=== PATIENT | female | born 1995 | race Asian ===

== ENCOUNTER 2018-04-22 17:55 | Emergency (ER) | payer OTHER ==
[~2018-04-22] VITALS: Ht 165.1 cm; Wt 72.6 kg
[2018-04-22 19:00] VITALS: BP 135/60
[2018-04-22] MEDS ORDERED: AMOXICILLIN/K CLAV 875/125MG TABLET. PO ONE (19:45)
[2018-04-22] MEDS ORDERED: ACETAMINOPHEN 325 MG TABLET. PO ONE (19:45)
[2018-04-22] MEDS ORDERED: ACETAMINOPHEN 650 MG/20.3 ML SOLUTION. PEG ONE (19:45)
[2018-04-22] MEDS ORDERED: CYCL10TA2 PO (20:28)
[2018-04-22] MEDS ORDERED: AMOX1TAB61 PO (20:28)
[2018-04-22] MEDS ORDERED: NAPR-683 PO (20:28)
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
== END 2018-04-22 20:30 | disposition home or self-care (01) ==
LOC: ER 17:55 → EEVIPCON 17:55 → ER 20:30
DX: S53.402A Unspecified sprain of left elbow, initial encounter (principal); S01.85XA Open bite of other part of head, initial encounter; T74.11XA Adult physical abuse, confirmed, initial encounter; W50.3XXA Accidental bite by another person, initial encounter; W51.XXXA Accidental striking against or bumped into by another person, initial encounter; Y93.89 Activity, other specified; Y92.89 Other specified places as the place of occurrence of the external cause; Y99.8 Other external cause status
CPT/HCPCS: 73080; 81025; 99283

== ENCOUNTER 2019-09-22 16:16 | Emergency (ER) | payer SELFPAY ==
[~2019-09-22] VITALS: Ht 167.6 cm; Wt 80.0 kg
[~2019-09-22 16:16] MED LIST: AMOX1TAB61 PO; CYCL10TA2 PO; NAPR-683 PO
[2019-09-22 16:30] VITALS: BP 126/78
[2019-09-22] MEDS ORDERED: PENICILLIN G BENZATHINE LA 1,200,000 UNIT/2 ML DISP.SYRIN. IM ONE (16:45)
--- NOTE | 2019-09-22 16:54 | PHYS DOC ---
Past Medical History Past Medical History: Other Additional Past Medical Histor: Right breast abscess Past Surgical History: No Surgical History Smoking Status: Never Smoker Alcohol Use: None Drug Use: None General Adult EDM: Chief Complaint: SORE THROAT HPI: HPI: Patient is a 24-year-old otherwise healthy female who presents with a sore throat. She has had some difficulty swallowing. She denies any cough or con gestion. She denies a rash. [] Review of Systems: Review of Systems: Constitutional: Denies fever or chills. [] Eyes: Denies change in visual acuity. [] HENT: Reports sore throat [] Respiratory: Denies cough or shortness of breath. [] Cardiovascular: Denies chest pain or edema. [] Heart Score: Risk Factors: Risk Factors: DM, Current or recent (<one month) smoker, HTN, HLP, family history of CAD, obesity. Risk Scores: Score 0 - 3: 2.5% MACE over next 6 weeks - Discharge Home Score 4 - 6: 20.3% MACE over next 6 weeks - Admit for Clinical Observation Score 7 - 10: 72.7% MACE over next 6 weeks - Early Invasive Strategies Current Medications: Current Medications Medications (Trade) Dose Ordered Sig/Rebecca Start Time Stop Time Status Last Admin Dose Admin Penicillin G Benzathine (Bicillin L-A) 1,200,000 unit 1X ONCE 09/22/19 16:45 09/22/19 16:46 DC Allergies: Allergies: Allergies Coded Allergies Type Severity Reaction Last Updated Verified No Known Drug Allergies 04/22/18 No Physical Exam: PE: Constitutional: Well developed, well nourished, appears acutely ill [] HENT: Posterior pharynx is erythematous with exudate. [] Eyes: PERRLA, EOMI, conjunctiva normal, no discharge. [] Neck: Normal range of motion, no tenderness, supple, no stridor. [] Cardiovascular:Heart rate regular rhythm, no murmur [] Lungs & Thorax: Bilateral breath sounds clear to auscultation [] Abdomen: Bowel sounds normal, soft, no tenderness, no masses, no pulsatile masses. [] Skin: Warm, dry, no erythema, no rash. [] Current Patient Data: Vital Signs: Vital Signs Date Time Temp Pulse Resp B/P (MAP) Pulse Ox O2 Delivery O2 Flow Rate FiO2 09/22/19 16:30 99.1 105 16 126/78 (94) 99 Room Air 99.1 EKG: EKG: [] Radiology/Procedures: Radiology/Procedures: [] Course & Med Decision Making: Course & Med Decision Making Pertinent Labs and Imaging studies reviewed. (See chart for details) [ED course: Evaluation reveals a 24-year-old female with an exudative pharyngitis that is likely strep. She was given Bicillin LA 1,200,000 units IM.] Dragon Disclaimer: Keli Disclaimer: This electronic medical record was generated, in whole or in part, using a voice recognition dictation system. Departure Departure Impression: Primary Impression: Exudative pharyngitis Disposition: HOME, SELF-CARE Condition: STABLE Referrals: LAVONNE NG MD (PCP) Patient Instructions: Strep Throat Additional Instructions: Return to the emergency department with any new or concerning symptoms Justicifation of Admission Dx: Justifications for Admission: Justification of Admission Dx: No RAMILA MELGOZA DO Sep 22, 2019 16:53
== END 2019-09-22 18:17 | disposition home or self-care (01) ==
LOC: ER 16:59
DX: J02.9 Acute pharyngitis, unspecified (principal); R13.10 Dysphagia, unspecified; Z98.890 Other specified postprocedural states
CPT/HCPCS: 96372; 99283; J0561